=== PATIENT | female | born 1990 | race Caucasian/White ===

== ENCOUNTER 2022-12-31 16:08 | Emergency (ER) | payer SELFPAY ==
--- NOTE | 2022-12-31 16:19 | ED Physician Documentation ---
PD HPI SKIN - Stated complaint Stated Complaint: RASH - Chief complaint Chief Complaint: General - History obtained from History obtained from: Patient - History of Present Illness Timing - onset: How many weeks ago (1) Timing - duration: Weeks (1) Timing - details: Gradual onset, Still present Location: LLE (behind left knee in popliteal crease. No noted injury, bite, sting, etc. Onset of redness initially in flexion crease popliteal. It expended concentrically and then had another ring of brighter redness around that (she had pictures of it in progression). Some moderate improved redness with HC OTC.) Quality / character: Itchy, Discolored, Raised (slightly rasided at leading edges.). No: Vesicular, Draining Improved by: Steroid cream Associated symptoms: No: Fever, Myalgias Contributing factors: No: Exposed to soap / lotion, Insect bite /sting Similar symptoms before: Has not had sx before Recently seen: Not recently seen Review of Systems Constitutional: denies: Fever, Chills Nose: denies: Rhinorrhea / runny nose, Congestion Throat: denies: Sore throat Respiratory: denies: Cough Skin: reports: Rash (only in the left popliteal area.) PD PAST MEDICAL HISTORY - Present Medications Home Medications: Ambulatory Orders Medication Instructions Recorded Confirmed Levothyroxine [Synthroid] 125 mcg PO QDAC 12/31/22 12/31/22 - Allergies Allergies/Adverse Reactions: Allergies Allergy/AdvReac Type Severity Reaction Status Date / Time No Known Drug Allergies Allergy Verified 12/31/22 16:13 PD ED PE NORMAL - Vitals Vital signs reviewed: Yes - General General: Alert and oriented X 3, No acute distress, Well developed/nourished - Derm Derm: Normal color, Warm and dry - Extremities Extremities: Other (left popliteal area with oval shaped rash centered over the flexion crease area. No skin breakdown. There is deep redness of it, with uniformly raised edge and less centrally. 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 No vesicles nor skin breakdown. Mild scaling of skin. ) Results - Vitals Vitals: Vital Signs - 24 hr 12/31/22 16:13 Temperature 36.5 C Heart Rate 98 Respiratory 16 Rate Blood Pressure 140/80 H O2 Saturation 100 Oxygen O2 Source Room air PD Medical Decision Making - ED course Complexity details: considered differential (gradual onset and increase with some improved with OTC hydrocortisone. Only that area involved. Appearance looks yeast/tinea like. Less likely contact dermatitis given oval shape and area. Does not have sting/bite appearance in skin. ), d/w patient Departure - Departure Disposition: 01 Home, Self Care Clinical Impression: Skin yeast infection Condition: Stable Record reviewed to determine appropriate education?: Yes Instructions: ED Infec Skin Fungal Tinea Comments: Your rash looks like a skin yeast infection with surrounding inflammation. You can continue the hydrocortisone that you have been using and seems to be decreasing the redness. I would suggest adding an antifungal ointment or cream lightly to the area 2 or 3 times daily for the next several days. Common [id number] ones are clotrimazole and terbinafine. Other considerations rather than skin yeast infection would be a contact dermatitis (something got on the skin and irritated) or even a potential local venom effect such as a bug bite or such. However the visual appearance of it looks more likely local rounded yeast infection. The other potential causes should just fade away on their own over a few days. A tinea infection would want to be treated with the antifungal. Recheck if not improved completely over several days to week. Discharge Date/Time: 12/31/22 17:10
[2022-12-31 16:21] VITALS: BP 140/80
== END 2022-12-31 17:10 | disposition home or self-care (01) ==
LOC: ED 16:08
DX: B37.2 Candidiasis of skin and nail (principal)
CPT/HCPCS: 99281; 99283